=== PATIENT | female | born 2000 | race Hispanic/Latino ===

== ENCOUNTER 2019-02-13 08:38 | Emergency (ER) | payer OTHER | END 2019-02-13 09:36 | disposition home or self-care (01) | LOC: EDH 08:38 | DX: F41.9 Anxiety disorder, unspecified (principal); K14.9 Disease of tongue, unspecified; Z88.8 Allergy status to other drugs, medicaments and biological substances; Z98.890 Other specified postprocedural states | CPT/HCPCS: 99281 ==

== ENCOUNTER 2019-03-19 19:15 | Inpatient (IN) | payer SELFPAY ==
[~2019-03-19] VITALS: Ht 154.9 cm; Wt 103.0 kg
[2019-03-19 19:44] LABS: BASOPHILS % (AUTO) 0.4 % (0.0-5.0); EOSINOPHILS % (AUTO) 0.3 % (0.0-8.0); HEMATOCRIT 35.6 % (36-48); MEAN CORPUSCULAR HEMOGLOBIN 26.6 pg (27.0-33.0); MEAN CORPUSCULAR HGB CONC 33.6 g/dL (32.0-36.0); MEAN CORPUSCULAR VOLUME 79.1 fL (80-100); MONOCYTES % (AUTO) 5.5 % (3.0-13.0); NEUTROPHILS % (AUTO) 70.8 % (40.0-77.0); PLATELET COUNT (AUTO) 234 K/uL (130-400); RED CELL DISTRIBUTION WIDTH 14.2 % (11.0-15.5); WHITE BLOOD COUNT (AUTO) 11.2 K/uL (4.8-10.8)
[2019-03-19 19:54] LABS: CARBON DIOXIDE 24 mmol/L (21-32); CHLORIDE 104 mmol/L (101-111); CREATININE 0.5 mg/dL (0.5-1.5); GLOMERULAR FILTR. RATE CALC 167 mL/min (>60); GLUCOSE,RANDOM 93 mg/dL (70-105); POTASSIUM 3.5 mmol/L (3.5-5.1); SODIUM SERUM 139 mmol/L (136-145); UREA NITROGEN, BLOOD 8 mg/dL (7-18)
[2019-03-19 19:58] LABS: ALANINE AMINOTRANSFERASE 24 U/L (12-78); ALBUMIN 3.5 g/dL (3.5-5.0); ASPARTATE AMINOTRANSFERASE 20 U/L (10-37); BILIRUBIN,TOTAL 0.2 mg/dL (0.2-1.0); CREATINE KINASE, TOTAL 71 U/L (21-232); TOTAL PROTEIN, SERUM 7.8 g/dL (6.0-8.3)
[2019-03-19 20:07] LABS: BILIRUBIN,DIRECT < 0.1 mg/dL (0.0-0.3)
[2019-03-19 20:53] LABS: APPEARANCE,URINE Clear (CLEAR); BILIRUBIN,URINE Negative (NEGATIVE); COLOR,URINE Yellow (YELLOW); GLUCOSE, URINE (UA) Negative (NEGATIVE); KETONES,URINE Trace mg/dL (NEGATIVE); LEUKOCYTE ESTERASE ,URINE Moderate (NEGATIVE); NITRATE,URINE Negative (NEGATIVE); OCCULT BLOOD,URINE Negative (NEGATIVE); PH,URINE 6.5 (5.0-8.0); PROTEIN,URINE Negative (NEGATIVE)
[2019-03-19 21:00] LABS: HCG,QUAL RESULT NEGATIVE (NEGATIVE)
[2019-03-19 21:01] LABS: BACTERIA,URINE Few /HPF (None Seen); MUCUS,URINE Few LPF (None Seen); SQUAMOUS EPITHELIAL CELL,UR Many /HPF (0-2)
[2019-03-19 21:02] LABS: AMPHET/METH SCREEN,URINE NEGATIVE (NEGATIVE); BARBITURATE SCREEN, URINE NEGATIVE (NEGATIVE); BENZODIAZEPINES SCREEN,URINE NEGATIVE (NEGATIVE); CANNABINOID SCREEN,URINE NEGATIVE (NEGATIVE); COCAINE SCREEN,URINE NEGATIVE (NEGATIVE); OPIATE SCREEN,URINE NEGATIVE (NEGATIVE); PHENCYCLIDINE SCREEN,URINE NEGATIVE (NEGATIVE)
[2019-03-19] MEDS ORDERED: SODIUM CHLORIDE 0.9% 1000ML 1,000 ML IV ONE (21:39)
[2019-03-19] MEDS ORDERED: ONDANSETRON HCL 4 MG/2 ML VIAL IV PRN (23:45)
[2019-03-19] MEDS ORDERED: ACETAMINOPHEN 325 MG TAB PO PRN ×2 (23:45)
[2019-03-20] MEDS ORDERED: HYDRALAZINE HCL 20 MG/ML VIAL IV PRN
[2019-03-20] MEDS ORDERED: CEFTRIAXONE SODIUM 1 GM ONE (00:12)
[2019-03-20 01:25] VITALS: BP 144/94
--- NOTE | 2019-03-20 01:40 | NUR ---
ADMIT PT ADMITTED TO ROOM 416, AAOX3. DENIES ANY PAINS NOR DISCOMFORT AT THIS TIME. CLAIMS OF FEELING HER RT WRIST BEING LOOSE AND DOES NOT HAVE STRENGTH. PT ABLE TO MOVE WRIST AND HAND. ADMISSION CARE DONE. ADMISSION DATA BASE COMPLETED. ORIENTED TO ROOM AND UNIT. PLACED ON SEIZURE PRECAUTIONS. IN FOR MORE CARE AND MANAGEMENT. Addendum: 03/20/19 at 0206 by HAFSA MCRAE RN RN Amended: Links added.
[2019-03-20 03:44] VITALS: BP 138/67
[2019-03-20 05:31] LABS: BASOPHILS % (AUTO) 0.4 % (0.0-5.0); HEMATOCRIT 32.4 % (36-48); LYMPHOCYTES % (AUTO) 34.7 % (21.0-51.0); MEAN CORPUSCULAR HEMOGLOBIN 26.8 pg (27.0-33.0); MEAN CORPUSCULAR HGB CONC 33.8 g/dL (32.0-36.0); MEAN CORPUSCULAR VOLUME 79.1 fL (80-100); NEUTROPHILS % (AUTO) 56.9 % (40.0-77.0); PLATELET COUNT (AUTO) 239 K/uL (130-400); RED CELL DISTRIBUTION WIDTH 14.4 % (11.0-15.5); WHITE BLOOD COUNT (AUTO) 10.3 K/uL (4.8-10.8)
[2019-03-20 05:34] LABS: CREATININE 0.5 mg/dL (0.5-1.5); POTASSIUM 3.6 mmol/L (3.5-5.1)
--- NOTE | 2019-03-20 05:36 | NUR ---
ROUNDS PT RESTING WELL, NO CONCERNS VERBALIZED. NO DISTRESS NOTED. NO SEIZURE ACTIVITY SINCE ADMISSION. FOR MORE CARE.
--- NOTE | 2019-03-20 07:31 | NUR ---
C/O HEADACHE AND SHAKINESS PATIENT IS C/O OF FEELING SHAKINESS, HEADACHE, AND NAUSEA. INFORMED TELLO DEMAND PLANNING MANAGER. NO ORDERS GIVEN AT THIS TIME.
[2019-03-20 08:00] VITALS: BP 123/75
[2019-03-20] MEDS: METOPROLOL TARTRATE 25 MG TAB PO SCH ×2 (08:24→23:11)
[2019-03-20] MEDS: FAMOTIDINE 20MG TAB 20 MG TAB PO SCH ×2 (08:24→23:11)
[2019-03-20] MEDS: LEVETIRACETAM 500 MG TABLET PO SCH ×2 (08:24→23:12)
[2019-03-20] MEDS: ENOXAPARIN SODIUM 40 MG/0.4 ML SYRINGE SQ SCH ×2 (08:25→10:30)
--- NOTE | 2019-03-20 10:30 | NUR ---
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 [facility] FOLLOW UP TEAGAN Leigh MD. PARTNER CAME INTO ROOM AND REPEATED THE INFO, HOME SAFE AND ACCESSIBLE, WITH SUPPLY TRANSPORT HOME Addendum: 03/20/19 at 1756 by ISAI RAMEY RN CM Amended: Links added.
[2019-03-20] MEDS ORDERED: GADODIAMIDE 10 MMOL/20 ML VIAL IV ONE (10:43)
[2019-03-20 11:50] VITALS: BP 116/72
--- NOTE | 2019-03-20 13:35 | NUR ---
DISCHARGE DISCHARGE INSTRUCTIONS GIVEN TO PATIENT. PATIENTS TAKES NO HOME MEDICATIONS. RECEIVED PRESCRIPTION FOR MEDROL DOSE PACK. PATIENT VERBALIZED UNDERSTANDING TO DISCHARGE INSTRUCTIONS. IV REMOVED NO COMPLICATIONS, HELD PRESSURE FOR 2 MINUTES COVERED WITH BANDAID NO SIGNS OF BLEEDING NOTED. Addendum: 03/20/19 at 1338 by LAYLA DENTON RN RN PREVIOUS NOTE ON WRONG PATIENT
[2019-03-20 16:00] VITALS: BP 113/65
[2019-03-20] MEDS ORDERED: MECLIZINE HCL 25 MG TABLET PO PRN (17:30)
[2019-03-20 20:00] VITALS: BP 121/68
[2019-03-20] MEDS: FOLIC ACID 1 MG TABLET PO SCH (23:11)
[2019-03-20] MEDS: CEFTRIAXONE SODIUM 1 GM IVP SCH ×2 (23:14)
--- NOTE | 2019-03-20 23:52 | NUR ---
Patient stated that she had a Seizure at 2330. Right now she is alertx3. Just feeling dizzy. UZMA Garcia OPTICAL COATING TECHNICIAN was notified and will come and see the patient in a little bit
[2019-03-21] VITALS: BP 130/66
[2019-03-21] MEDS ORDERED: LORAZEPAM 2 MG/ML 1 ML VIAL IVP PRN
[2019-03-21 04:00] VITALS: BP 107/55
[2019-03-21 06:06] LABS: BASOPHILS % (AUTO) 0.4 % (0.0-5.0); EOSINOPHILS % (AUTO) 1.2 % (0.0-8.0); HEMATOCRIT 35.8 % (36-48); LYMPHOCYTES % (AUTO) 33.4 % (21.0-51.0); MEAN CORPUSCULAR VOLUME 79.5 fL (80-100); MONOCYTES % (AUTO) 8.2 % (3.0-13.0); NEUTROPHILS % (AUTO) 56.8 % (40.0-77.0); PLATELET COUNT (AUTO) 238 K/uL (130-400); RED CELL DISTRIBUTION WIDTH 14.4 % (11.0-15.5); WHITE BLOOD COUNT (AUTO) 9.2 K/uL (4.8-10.8)
[2019-03-21 06:16] LABS: CREATININE 0.6 mg/dL (0.5-1.5); POTASSIUM 3.7 mmol/L (3.5-5.1)
[2019-03-21 08:00] VITALS: BP 126/63
[2019-03-21] MEDS: FOLIC ACID 1 MG TABLET PO SCH (09:28)
[2019-03-21] MEDS: METOPROLOL TARTRATE 25 MG TAB PO SCH (09:28)
[2019-03-21] MEDS: FAMOTIDINE 20MG TAB 20 MG TAB PO SCH (09:29)
[2019-03-21] MEDS: LEVETIRACETAM 500 MG TABLET PO SCH (09:29)
[2019-03-21 11:53] VITALS: BP 110/60
[2019-03-21] MEDS ORDERED: METO25 PO ×2 (13:24)
[2019-03-21] MEDS ORDERED: FOLI1 PO ×2 (13:24)
[2019-03-21] MEDS ORDERED: CEFD300C3 PO ×2 (13:24)
[2019-03-21] MEDS ORDERED: LEVE-43 PO ×2 (13:24)
[2019-03-21] MEDS ORDERED: LEVETIRACETAM 500 MG TABLET PO SCH (21:00)
== END 2019-03-21 13:34 | disposition left against medical advice (07) | DRG 101 ==
LOC: EDH 19:15 → EDHIP 19:16 → OBSVTOIN 19:16 → 4CH 03-20 01:09
PROVIDERS: ADMIT Internal Medicine; ATTEND Internal Medicine
DX: G40.909 Epilepsy, unspecified, not intractable, without status epilepticus (principal); N39.0 Urinary tract infection, site not specified; Z68.41 Body mass index [BMI] 40.0-44.9, adult; M21.331 Wrist drop, right wrist; W18.30XA Fall on same level, unspecified, initial encounter; E66.9 Obesity, unspecified; Z91.14 Patient's other noncompliance with medication regimen; Y93.89 Activity, other specified; Y92.008 Other place in unspecified non-institutional (private) residence as the place of occurrence of the external cause; Y99.8 Other external cause status; Z53.29 Procedure and treatment not carried out because of patient's decision for other reasons
CPT/HCPCS: 36415; 70450; 70553; 73110; 80048; 80076; 80305; 81001; 81025; 82550; 84443; 85025; 87077; 87088; 87186; 93005; 95816; A9579; G0378; J0696; J1650; J7030

== ENCOUNTER 2019-03-21 23:46 | Emergency (ER) | payer SELFPAY ==
[~2019-03-21 23:46] MED LIST: CEFD300C3 PO; FOLI1 PO; LEVE-43 PO; METO25 PO
[2019-03-22] MEDS ORDERED: LEVETIRACETAM 500 MG/5 ML SD VIAL IV ONE (00:59)
[2019-03-22 01:03] LABS: BASOPHILS % (AUTO) 0.5 % (0.0-5.0); EOSINOPHILS % (AUTO) 0.2 % (0.0-8.0); HEMATOCRIT 37.4 % (36-48); LYMPHOCYTES % (AUTO) 26.4 % (21.0-51.0); MEAN CORPUSCULAR HEMOGLOBIN 26.5 pg (27.0-33.0); MEAN CORPUSCULAR HGB CONC 33.7 g/dL (32.0-36.0); MEAN CORPUSCULAR VOLUME 78.6 fL (80-100); MONOCYTES % (AUTO) 5.7 % (3.0-13.0); NEUTROPHILS % (AUTO) 67.2 % (40.0-77.0); NUCLEATED RED BLOOD CELLS 0.1 % (0.0-0.19); PLATELET COUNT (AUTO) 248 K/uL (130-400); RED BLOOD CELL COUNT(AUTO) 4.75 MIL/uL (4.00-5.50); RED CELL DISTRIBUTION WIDTH 14.2 % (11.0-15.5); WHITE BLOOD COUNT (AUTO) 13.3 K/uL (4.8-10.8)
[2019-03-22 01:13] LABS: CREATININE 0.6 mg/dL (0.5-1.5); POTASSIUM 3.5 mmol/L (3.5-5.1)
[2019-03-22 01:17] LABS: ALBUMIN 3.7 g/dL (3.5-5.0); BILIRUBIN,DIRECT 0.1 mg/dL (0.0-0.3); BILIRUBIN,TOTAL 0.3 mg/dL (0.2-1.0); TOTAL PROTEIN, SERUM 8.4 g/dL (6.0-8.3)
[2019-03-22] MEDS ORDERED: ACETAMINOPHEN EXTRA STRENGTH 500 MG TABLET ONE (01:20)
[2019-03-22 02:54] LABS: APPEARANCE,URINE Clear (CLEAR); BILIRUBIN,URINE Negative (NEGATIVE); COLOR,URINE Yellow (YELLOW); GLUCOSE, URINE (UA) Negative (NEGATIVE); KETONES,URINE 40 mg/dL (NEGATIVE); LEUKOCYTE ESTERASE ,URINE Trace (NEGATIVE); NITRATE,URINE Negative (NEGATIVE); OCCULT BLOOD,URINE Negative (NEGATIVE); PROTEIN,URINE Negative (NEGATIVE)
[2019-03-22 03:00] LABS: BACTERIA,URINE None Seen /HPF (None Seen); MUCUS,URINE Few LPF (None Seen); RBC,URINE None Seen /HPF (0-1); SQUAMOUS EPITHELIAL CELL,UR Few /HPF (0-2); WBC,URINE 0-1 /HPF (0-1)
== END 2019-03-22 03:46 | disposition home or self-care (01) ==
LOC: EDH 23:46
DX: G40.909 Epilepsy, unspecified, not intractable, without status epilepticus (principal); N39.0 Urinary tract infection, site not specified; R51 Headache; Z88.8 Allergy status to other drugs, medicaments and biological substances; Z90.49 Acquired absence of other specified parts of digestive tract
CPT/HCPCS: 36415; 80048; 80076; 81001; 82550; 85025; 93005; 96365; 96366; 99285; J1953

== ENCOUNTER 2020-04-03 23:28 | Emergency (ER) | payer OTHER | END 2020-04-04 00:09 | disposition left against medical advice (07) | LOC: EDH 23:28 | DX: R21 Rash and other nonspecific skin eruption (principal); L29.9 Pruritus, unspecified; F31.9 Bipolar disorder, unspecified; Z90.49 Acquired absence of other specified parts of digestive tract; Z88.8 Allergy status to other drugs, medicaments and biological substances; Z53.21 Procedure and treatment not carried out due to patient leaving prior to being seen by health care provider ==